=== PATIENT | female | born 1995 | race Caucasian/White ===

== ENCOUNTER 2023-08-03 12:35 | Emergency (ER) | payer OTHER ==
[~2023-08-03] VITALS: Ht 160 cm; Wt 59.0 kg
[2023-08-03 14:39] LABS: HEMATOCRIT 35.7 % (36.0-45.00); HEMOGLOBIN 12.2 g/dL (12.0-15.00); MEAN CELL VOLUME 89.5 fL (80.00-100.00); MEAN CORPUSCULAR HEMOGLOBIN 30.5 pg (27.00-32.0); MEAN CORPUSCULAR HGB CONC 34.1 g/dl (32.0-36.0); PLATELET COUNT 183 K/uL (150-450); RED BLOOD COUNT 3.99 M/uL (4.00-6.00); RED CELL DISTRIBUTION WIDTH 13.3 % (11.5-14.5)
[2023-08-03 15:12] LABS: CALCIUM 8.7 mg/dL (8.5-10.1); CREATININE SERUM 0.57 mg/dL (0.55-1.02); GFR 128.21; POTASSIUM 3.64 mEq/L (3.5-5.1)
== END 2023-08-03 15:28 | disposition home or self-care (01) ==
LOC: ER 12:36
PROVIDERS: General Practice
DX: R42 Dizziness and giddiness (principal)